=== PATIENT | female | born 1935 | race Two or more races ===

== ENCOUNTER 2016-07-31 10:24 | Inpatient (IN) | payer OTHER ==
[~2016-07-31] VITALS: Ht 157.5 cm; Wt 60.5 kg
[~2016-07-31 10:24] MED LIST: ASPI-231 PO; CLOP75TA28 PO; DIL120C PO; LISI10TA6 PO; SIMV-13 PO
[2016-07-31] MEDS ORDERED: SODIUM CHLORIDE 0.9% 1,000 ML IV ONE (12:40)
[2016-07-31 13:04] LABS: Basophils # (auto) 0 uL; Basophils % (auto) 0.5 % (0.0-2.0); Eosinophils # (auto) 0.1 uL; Eosinophils % (auto) 1.8 % (0.0-7.0); Hematocrit 41.4 % (36.0-46.0); Lymphocytes # (auto) 1.9 uL; Lymphocytes % (auto) 25.9 % (10.0-50.0); Mean Corpuscular Hemoglobin 29.5 pg (28.0-32.0); Mean Corpuscular Hgb Conc. 31.5 g/dL (32.0-36.0); Mean Corpuscular Volume 93.8 fL (80.0-100.0); Mean Platelet Volume 7.8 fL (7.4-10.4); Monocytes # (auto) 0.6 uL; Monocytes % (auto) 7.5 % (0.0-12.0); Neutrophils # (auto) 4.7 uL; Neutrophils % (auto) 64.3 % (37.0-80.0); Platelet Count (auto) 297 10^3/uL (140-450); Red Cell Distribution Width 13.1 % (11.6-16.0); White Blood Cell 7.4 10^3/uL (4.4-10.8)
[2016-07-31 13:15] LABS: INR 0.97 (0.9-1.15); Partial Thromboplastin Time 24.8 sec (22.64-33.71)
[2016-07-31 13:20] LABS: Albumin 3.7 g/dL (3.4-5.0); BUN/Creatinine Ratio 22.7; Calcium 8.8 mg/dL (8.5-10.1); Magnesium 2.3 mg/dL (1.6-2.6)
[2016-07-31 13:23] LABS: Bilirubin, Total 0.3 mg/dL (0.2-1.0); Total Protein 7.3 g/dL (6.4-8.2)
[2016-07-31] MEDS ORDERED: PROMETHAZINE HCL 25 MG/ML 1ML IV PRN (14:00)
[2016-07-31] MEDS ORDERED: PANTOPRAZOLE 40 MG TAB PO ONE (14:00)
[2016-07-31] MEDS ORDERED: MORPHINE SULF INJ 2 MG/ML SYRINGE 1ML IV PRN ×2 (14:00)
[2016-07-31] MEDS ORDERED: ACETAMINOPHEN 500 MG TAB PO PRN (14:00)
[2016-07-31] MEDS ORDERED: HYDROcodone-ACET 5/325MG TAB PO PRN (14:00)
[2016-07-31] MEDS ORDERED: LACTULOSE 20Gm/30ML SOLN PO PRN (14:00)
[2016-07-31] MEDS ORDERED: NITROGLYCERIN 0.4 MG SL TAB SL PRN (14:00)
[2016-07-31] MEDS ORDERED: LORazepam 0.5 MG TAB PO PRN (14:00)
[2016-07-31] MEDS ORDERED: ENOXAPARIN SOD 40 MG/0.4 ML SYRINGE SC ONE (14:00)
[2016-07-31 14:54] LABS: Temperature: 23.7 C (20.0-25.0)
[2016-07-31] MEDS: SODIUM CHLORIDE 0.9% 1,000 ML IV SCH ×2 (15:41→15:48)
[2016-07-31] MEDS ORDERED: CLOPIDOGREL BISULFATE 75 MG TAB PO ONE (18:45)
[2016-07-31] MEDS ORDERED: LISINOPRIL 10 MG TAB PO ONE (18:45)
[2016-07-31] MEDS ORDERED: DILTIAZEM HCL 120MG ER CAP PO ONE (18:45)
[2016-07-31 20:00] VITALS: BP 120/67
[2016-07-31 22:00] VITALS: BP 120/67
[2016-07-31] MEDS: TEMAZEPAM 15 MG CAP PO PRN (23:44)
[2016-07-31] MEDS: LISINOPRIL 10 MG TAB PO SCH (23:44)
[2016-08-01 05:00] VITALS: BP 108/66
[2016-08-01 07:07] LABS: Albumin 3.1 g/dL (3.4-5.0); BUN/Creatinine Ratio 18.6; Bilirubin, Total 0.5 mg/dL (0.2-1.0); Calcium 8.5 mg/dL (8.5-10.1); Potassium 3.8 mmol/L (3.5-5.1); Total Protein 6.3 g/dL (6.4-8.2)
[2016-08-01 09:00] VITALS: BP 119/68
[2016-08-01] MEDS: ENOXAPARIN SOD 40 MG/0.4 ML SYRINGE SC SCH (09:44)
[2016-08-01] MEDS: ASPirin 81 mg TAB PO SCH (09:49)
[2016-08-01] MEDS: CLOPIDOGREL BISULFATE 75 MG TAB PO SCH (09:49)
[2016-08-01] MEDS: PANTOPRAZOLE 40 MG TAB PO SCH (09:49)
[2016-08-01] MEDS: DILTIAZEM HCL 120MG ER CAP PO SCH (09:50)
[2016-08-01] MEDS ORDERED: ASPirin 81 mg TAB PO ONE (10:00)
[2016-08-01 10:12] LABS: Urine Bilirubin Negative (Negative); Urine Color Yellow (Yellow); Urine Glucose Normal (Normal); Urine Ketone Negative (Negative); Urine Nitrite Negative (Negative); Urine RBC 220 /hpf (0 - 4); Urine Squamous Epithelial Cell FEW /hpf (<5); Urine Urobilinogen Normal (Negative)
[2016-08-01 10:17] LABS: Urine Blood 2+ /uL (Negative)
[2016-08-01 13:00] VITALS: BP 100/68
[2016-08-01 14:34] LABS: Cholesterol 206 mg/dL (<200); HDL Cholesterol 53 mg/dL (40-59); LDL Cholesterol 138 mg/dL (<100); Triglycerides 145 mg/dL (<150)
[2016-08-01] MEDS ORDERED: IOHEXOL 350 MG/ML 100ML IJ ONE (15:05)
[2016-08-01 17:00] VITALS: BP 115/59
[2016-08-01 20:00] VITALS: BP 120/67
[2016-08-01 22:00] VITALS: BP 116/59
[2016-08-01] MEDS: LISINOPRIL 10 MG TAB PO SCH (22:37)
[2016-08-01] MEDS: TEMAZEPAM 15 MG CAP PO PRN (22:37)
[2016-08-02 05:00] VITALS: BP 120/68
[2016-08-02 08:00] VITALS: BP 113/61
[2016-08-02 09:00] VITALS: BP 113/61
[2016-08-02] MEDS: ENOXAPARIN SOD 40 MG/0.4 ML SYRINGE SC SCH (10:19)
[2016-08-02] MEDS: CLOPIDOGREL BISULFATE 75 MG TAB PO SCH (10:19)
[2016-08-02] MEDS: DILTIAZEM HCL 120MG ER CAP PO SCH (10:20)
[2016-08-02] MEDS: ASPirin 81 mg TAB PO SCH (10:21)
[2016-08-02] MEDS: PANTOPRAZOLE 40 MG TAB PO SCH (10:21)
[2016-08-02 13:00] VITALS: BP 103/67
[2016-08-02] MEDS: SODIUM CHLORIDE 0.9% 1,000 ML IV SCH (16:17)
[2016-08-02 17:00] VITALS: BP 129/74
[2016-08-02 22:00] VITALS: BP 110/57
[2016-08-02] MEDS: TEMAZEPAM 15 MG CAP PO PRN (22:09)
[2016-08-02] MEDS: LISINOPRIL 10 MG TAB PO SCH (22:09)
[2016-08-03] VITALS (7 sets, daily range): BP systolic 121–139; BP diastolic 57–76
[2016-08-03] MEDS: SODIUM CHLORIDE 0.9% 1,000 ML IV SCH ×2 (04:33→19:08)
[2016-08-03 05:06] LABS: Basophils # (auto) 0 uL; Basophils % (auto) 0.4 % (0.0-2.0); Eosinophils # (auto) 0.3 uL; Eosinophils % (auto) 5.4 % (0.0-7.0); Hematocrit 36.6 % (36.0-46.0); Hemoglobin 11.8 g/dL (12.2-16.2); Lymphocytes % (auto) 37.2 % (10.0-50.0); Mean Corpuscular Hgb Conc. 32.1 g/dL (32.0-36.0); Mean Corpuscular Volume 93.4 fL (80.0-100.0); Mean Platelet Volume 7.9 fL (7.4-10.4); Monocytes # (auto) 0.5 uL; Monocytes % (auto) 9.4 % (0.0-12.0); Neutrophils # (auto) 2.5 uL; Neutrophils % (auto) 47.6 % (37.0-80.0); Platelet Count (auto) 253 10^3/uL (140-450); Red Cell Distribution Width 13.4 % (11.6-16.0); White Blood Cell 5.3 10^3/uL (4.4-10.8)
[2016-08-03 05:35] LABS: Albumin 2.8 g/dL (3.4-5.0); Calcium 8.3 mg/dL (8.5-10.1); Magnesium 2.1 mg/dL (1.6-2.6); Potassium 3.9 mmol/L (3.5-5.1)
[2016-08-03 05:37] LABS: BUN/Creatinine Ratio 15.5
[2016-08-03 05:40] LABS: Bilirubin, Total 0.3 mg/dL (0.2-1.0); Total Protein 5.7 g/dL (6.4-8.2)
[2016-08-03] MEDS ORDERED: LORazepam 2MG/ML-1ML VIAL IV ONE (10:30)
[2016-08-03] MEDS: ENOXAPARIN SOD 40 MG/0.4 ML SYRINGE SC SCH (10:34)
[2016-08-03] MEDS: DILTIAZEM HCL 120MG ER CAP PO SCH (10:35)
[2016-08-03] MEDS: PANTOPRAZOLE 40 MG TAB PO SCH (10:36)
[2016-08-03] MEDS: CLOPIDOGREL BISULFATE 75 MG TAB PO SCH (10:36)
[2016-08-03] MEDS: ASPirin 81 mg TAB PO SCH (10:36)
[2016-08-03] MEDS: LISINOPRIL 10 MG TAB PO SCH (21:54)
[2016-08-03] MEDS: TEMAZEPAM 15 MG CAP PO PRN (21:57)
[2016-08-04] MEDS: SODIUM CHLORIDE 0.9% 1,000 ML IV SCH (05:58)
[2016-08-04 06:03] VITALS: BP 124/71
[2016-08-04 07:05] LABS: BUN/Creatinine Ratio 12.1; Calcium 8.3 mg/dL (8.5-10.1); Potassium 3.7 mmol/L (3.5-5.1)
[2016-08-04 09:00] VITALS: BP 118/68
[2016-08-04] MEDS ORDERED: FUROSEMIDE 40 MG/4 ML VIAL ONE (09:02)
[2016-08-04] MEDS: CLOPIDOGREL BISULFATE 75 MG TAB PO SCH (10:02)
[2016-08-04] MEDS: PANTOPRAZOLE 40 MG TAB PO SCH (10:02)
[2016-08-04] MEDS: ASPirin 81 mg TAB PO SCH (10:02)
[2016-08-04] MEDS: ENOXAPARIN SOD 40 MG/0.4 ML SYRINGE SC SCH (10:02)
[2016-08-04] MEDS: DILTIAZEM HCL 120MG ER CAP PO SCH (10:03)
[2016-08-04 12:54] VITALS: BP 115/63
[2016-08-04 15:59] VITALS: BP 118/68
[2016-08-04] MEDS ORDERED: ATORVASTATIN 20 MG TAB PO SCH (22:00)
== END 2016-08-04 17:33 | disposition home health service (06) | DRG 69 ==
LOC: ER 10:29 → TELE 10:30 → TELE-EAST 18:57
PROVIDERS: ADMIT Internal Medicine; ATTEND Internal Medicine
DX: G45.9 Transient cerebral ischemic attack, unspecified (principal); E44.1 Mild protein-calorie malnutrition; I13.0 Hypertensive heart and chronic kidney disease with heart failure and stage 1 through stage 4 chronic kidney disease, or unspecified chronic kidney disease; N13.2 Hydronephrosis with renal and ureteral calculous obstruction; I25.10 Atherosclerotic heart disease of native coronary artery without angina pectoris; E78.5 Hyperlipidemia, unspecified; I50.9 Heart failure, unspecified; K75.9 Inflammatory liver disease, unspecified; N13.9 Obstructive and reflux uropathy, unspecified; Z83.3 Family history of diabetes mellitus; I25.2 Old myocardial infarction; Z79.82 Long term (current) use of aspirin; Z80.6 Family history of leukemia; Z79.899 Other long term (current) drug therapy; Z90.49 Acquired absence of other specified parts of digestive tract; Z68.24 Body mass index [BMI] 24.0-24.9, adult
CPT/HCPCS: 36415; 70450; 70496; 70498; 70551; 71010; 74176; 76705; 78707; 80048; 80053; 80061; 81001; 82550; 82607; 82746; 83036; 83735; 84443; 84484; 85025; 85610; 85652; 85730; 86141; 87081; 93005; 93886; 94761; 96360; 96372

== ENCOUNTER 2017-06-29 08:24 | Emergency (ER) | payer OTHER ==
[~2017-06-29] VITALS: Ht 157.5 cm; Wt 60.8 kg
[2017-06-29] MEDS ORDERED: ALBUTEROL SULF 2.5 MG/0.5ML(0.5%) NEB SOLN NEB ONE (09:45)
[2017-06-29] MEDS ORDERED: IPRATROPIUM BROM 0.5 MG/2.5ML INH SOL NEB ONE (09:45)
[2017-06-29] MEDS ORDERED: methylPREDNISolone SOD SUCC 125 MG/2 ML VL IM ONE (09:45)
[2017-06-29] MEDS ORDERED: NITROGLYCERIN 0.4 MG SL TAB SL ONE (10:00)
[2017-06-29 10:13] LABS: Basophils # (auto) 0 uL; Basophils % (auto) 0.4 % (0.0-2.0); Eosinophils # (auto) 0 uL; Eosinophils % (auto) 0.5 % (0.0-7.0); Hematocrit 41.9 % (36.0-46.0); Hemoglobin 14.2 g/dL (12.2-16.2); Lymphocytes # (auto) 1.6 uL; Mean Corpuscular Hemoglobin 32.5 pg (28.0-32.0); Mean Corpuscular Hgb Conc. 33.8 g/dL (32.0-36.0); Monocytes # (auto) 0.4 uL; Monocytes % (auto) 4.8 % (0.0-12.0); Neutrophils # (auto) 6.7 uL; Neutrophils % (auto) 76.3 % (37.0-80.0); Nucleated Red Blood Cells % 0.1 %; Platelet Count (auto) 268 10^3/uL (140-450); Red Blood Cells 4.37 10^6/uL (4.0-5.20); White Blood Cell 8.8 10^3/uL (4.4-10.8)
[2017-06-29 10:38] LABS: Urine Bacteria NONE SEEN /hpf (None Seen); Urine Blood Negative /uL (Negative); Urine Mucus FEW (None Seen); Urine WBC 5 /hpf (0 - 5)
[2017-06-29 11:30] VITALS: BP 138/68
[2017-06-29 11:49] LABS: Albumin 3.6 g/dL (3.4-5.0); BUN/Creatinine Ratio 22.6; Bilirubin, Total 0.7 mg/dL (0.2-1.0); Calcium 8.2 mg/dL (8.5-10.1); Potassium 4.2 mmol/L (3.5-5.1); Total Protein 6.6 g/dL (6.4-8.2)
== END 2017-06-29 12:41 | disposition home or self-care (01) ==
LOC: ER 08:24 → EDBD 08:24 → ER 12:41
DX: J40 Bronchitis, not specified as acute or chronic (principal); I25.10 Atherosclerotic heart disease of native coronary artery without angina pectoris; E78.5 Hyperlipidemia, unspecified; I10 Essential (primary) hypertension; I25.2 Old myocardial infarction; Z86.73 Personal history of transient ischemic attack (TIA), and cerebral infarction without residual deficits
CPT/HCPCS: 36415; 71046; 80053; 81001; 83880; 84484; 85025; 94640; 96372; 99285; J2930; 93005

== ENCOUNTER 2017-09-25 19:54 | Emergency (ER) | payer OTHER ==
[~2017-09-25] VITALS: Ht 157.5 cm; Wt 60.8 kg
[2017-09-25 20:46] LABS: Urine Bacteria FEW /hpf (None Seen); Urine Blood 2+ /uL (Negative); Urine Specific Gravity 1.007 (1.001-1.035); Urine WBC 816 /hpf (0 - 5); Urine WBC Clumps PRESENT /hpf (None Seen)
[2017-09-25 21:11] LABS: Basophils # (auto) 0.1 uL; Basophils % (auto) 0.7 % (0.0-2.0); Eosinophils # (auto) 0.1 uL; Eosinophils % (auto) 0.5 % (0.0-7.0); Hematocrit 42.2 % (36.0-46.0); Lymphocytes # (auto) 1.4 uL; Lymphocytes % (auto) 12.5 % (10.0-50.0); Mean Corpuscular Hemoglobin 31.1 pg (28.0-32.0); Mean Corpuscular Hgb Conc. 33.1 g/dL (32.0-36.0); Mean Corpuscular Volume 93.9 fL (80.0-100.0); Monocytes # (auto) 1.3 uL; Monocytes % (auto) 11.2 % (0.0-12.0); Neutrophils # (auto) 8.5 uL; Neutrophils % (auto) 75.1 % (37.0-80.0); Platelet Count (auto) 270 10^3/uL (140-450); Red Cell Distribution Width 13.8 % (11.8-14.3); White Blood Cell 11.4 10^3/uL (4.4-10.8)
[2017-09-25 21:27] LABS: INR 0.9 (0.9-1.15); Partial Thromboplastin Time 25.3 sec (22.64-33.71); Prothrombin Time 9.8 sec (9.37-12.3)
[2017-09-25 21:38] LABS: Alanine Aminotransferase 29 U/L (13-56); Albumin 4.1 g/dL (3.4-5.0); Alkaline Phosphatase 67 U/L (45-117); Anion Gap 6 (5-15); Aspartate Aminotransferase 25 U/L (15-37); BUN/Creatinine Ratio 14.3; Bilirubin, Total 0.6 mg/dL (0.2-1.0); Blood Urea Nitrogen 11 mg/dL (7-18); Calcium 8.9 mg/dL (8.5-10.1); Carbon Dioxide 26 mmol/L (21-32); Chloride 100 mmol/L (98-107); GFR African American 92 mL/min; GFR Non-African American 76 mL/min; Glucose 115 mg/dL (74-106); Potassium 3.9 mmol/L (3.5-5.1); Sodium 132 mmol/L (136-145); Total Protein 7.9 g/dL (6.4-8.2)
[2017-09-25] MEDS ORDERED: cefTRIAXone 1GM/10ml IVPUSH 10 ML IV ONE (23:15)
[2017-09-25] MEDS ORDERED: SODIUM CHLORIDE 0.9% 1,000 ML IV ONE (23:30)
[2017-09-26] MEDS ORDERED: NALBUPHINE HCL 10 MG/1ml INJECTION IV ONE (00:15)
[2017-09-26] MEDS ORDERED: ONDANSETRON HCL 4 MG/2 ML VIAL IV ONE (00:15)
[2017-09-26 02:07] VITALS: BP 91/60
== END 2017-09-26 02:13 | disposition home or self-care (01) ==
LOC: ER 19:54
DX: N39.0 Urinary tract infection, site not specified (principal); K59.00 Constipation, unspecified; I25.10 Atherosclerotic heart disease of native coronary artery without angina pectoris; E78.5 Hyperlipidemia, unspecified; I10 Essential (primary) hypertension; I25.2 Old myocardial infarction; Z86.73 Personal history of transient ischemic attack (TIA), and cerebral infarction without residual deficits; Z79.899 Other long term (current) drug therapy; Z87.440 Personal history of urinary (tract) infections; Z79.82 Long term (current) use of aspirin; Z90.49 Acquired absence of other specified parts of digestive tract; Z87.442 Personal history of urinary calculi
CPT/HCPCS: 36415; 74176; 80053; 81001; 83880; 84484; 85025; 85610; 85730; 93005; 96361; 96374; 96375; 99285; J2300; J2405; J7030

== ENCOUNTER 2018-01-23 13:22 | Observation (INO) | payer MEDICARE, OTHER ==
[~2018-01-23] VITALS: Ht 157.5 cm; Wt 59.9 kg
[2018-01-23] MEDS ORDERED: SODIUM CHLORIDE 0.9% 1,000 ML IV ONE (15:14)
[2018-01-23] MEDS ORDERED: PHENAZOPYRIDINE HCL 100 MG TAB PO ONE (15:30)
[2018-01-23 16:10] VITALS: BP 154/66
[2018-01-23] MEDS ORDERED: SODIUM CHLORIDE 0.9% 1,000 ML IVB ONE (16:36)
[2018-01-23 16:37] LABS: Basophils # (auto) 0.1 uL; Basophils % (auto) 0.6 % (0.0-2.0); Eosinophils # (auto) 0.1 uL; Eosinophils % (auto) 0.7 % (0.0-7.0); Hemoglobin 13.8 g/dL (12.2-16.2); Lymphocytes # (auto) 0.8 uL; Lymphocytes % (auto) 4.9 % (10.0-50.0); Mean Corpuscular Hemoglobin 31.7 pg (28.0-32.0); Mean Corpuscular Hgb Conc. 33.8 g/dL (32.0-36.0); Mean Corpuscular Volume 93.8 fL (80.0-100.0); Monocytes # (auto) 0.7 uL; Monocytes % (auto) 4.4 % (0.0-12.0); Neutrophils % (auto) 89.4 % (37.0-80.0); Platelet Count (auto) 227 10^3/uL (140-450); Red Blood Cells 4.37 10^6/uL (4.0-5.20); Red Cell Distribution Width 13.1 % (11.8-14.3); White Blood Cell 16.8 10^3/uL (4.4-10.8)
[2018-01-23] MEDS ORDERED: ONDANSETRON HCL 4 MG/2 ML VIAL IV ONE (16:45)
[2018-01-23] MEDS ORDERED: MORPHINE SULF INJ 2 MG/ML SYRINGE 1ML IV ONE (16:45)
[2018-01-23 16:49] LABS: Urine Bacteria NONE SEEN /hpf (None Seen); Urine Blood Negative /uL (Negative); Urine Mucus FEW (None Seen); Urine WBC 19 /hpf (0 - 5)
[2018-01-23 16:55] LABS: Albumin 3.2 g/dL (3.4-5.0); BUN/Creatinine Ratio 14.9; Calcium 8.1 mg/dL (8.5-10.1); Potassium 3.3 mmol/L (3.5-5.1)
[2018-01-23 16:57] LABS: Bilirubin, Total 1.1 mg/dL (0.2-1.0); INR 0.97 (0.9-1.15); Partial Thromboplastin Time 26.6 sec (23.78-33.04); Prothrombin Time 10.4 sec (9.27-12.13); Total Protein 6.5 g/dL (6.4-8.2)
[2018-01-23] MEDS ORDERED: cefTRIAXone 1GM/10ml IVPUSH 10 ML IV ONE (17:00)
== END 2018-01-23 18:03 | disposition home or self-care (01) | DRG 690 ==
LOC: MERGE 13:22 → ER 13:22 → OVERFLOW 13:23 → ER 18:03
PROVIDERS: ADMIT Family Medicine; ATTEND Family Medicine
DX: N12 Tubulo-interstitial nephritis, not specified as acute or chronic (principal); I10 Essential (primary) hypertension; I25.2 Old myocardial infarction; Z88.1 Allergy status to other antibiotic agents; Z90.49 Acquired absence of other specified parts of digestive tract
CPT/HCPCS: 36415; 71045; 74176; 80053; 81001; 83735; 84484; 85025; 85610; 85730; 87040; 87086; 93005; 96361; 96374; 96375; 99285; G0378; J0696; J2270; J2405; J7030

== ENCOUNTER 2018-04-05 15:37 | Inpatient (IN) | payer OTHER ==
[~2018-04-05] VITALS: Ht 157.5 cm; Wt 60.9 kg
[2018-04-05] MEDS ORDERED: SODIUM CHLORIDE 0.9% 1,000 ML IV ONE (15:52)
[2018-04-05 17:26] LABS: Urine Bacteria FEW /hpf (None Seen); Urine Blood 2+ /uL (Negative); Urine Mucus FEW (None Seen); Urine Specific Gravity 1.015 (1.001-1.035); Urine WBC 2327 /hpf (0 - 5); Urine WBC Clumps PRESENT /hpf (None Seen)
[2018-04-05] MEDS ORDERED: cefTRIAXone 1GM/50ML D5W 50 ML IV ONE (17:30)
[2018-04-05] MEDS ORDERED: TEMAZEPAM 15 MG CAP PO PRN (18:15)
[2018-04-05] MEDS ORDERED: ACETAMINOPHEN 325 MG TAB PO PRN (18:15)
[2018-04-05] MEDS ORDERED: HYDROcodone-ACET 5/325MG TAB PO PRN (18:15)
[2018-04-05] MEDS ORDERED: DOCUSATE SOD 100 MG CAP PO PRN (18:15)
[2018-04-05] MEDS ORDERED: MORPHINE SULFATE 4 MG/ML SYR/VIAL IV PRN (18:15)
[2018-04-05] MEDS ORDERED: ONDANSETRON HCL 4 MG/2 ML VIAL IV PRN (18:15)
[2018-04-05 18:44] LABS: Basophils # (auto) 0 uL; Basophils % (auto) 0.2 % (0.0-2.0); Eosinophils # (auto) 0 uL; Hematocrit 41.3 % (36.0-46.0); Lymphocytes # (auto) 1.3 uL; Lymphocytes % (auto) 7.7 % (10.0-50.0); Mean Corpuscular Hgb Conc. 33.8 g/dL (32.0-36.0); Mean Corpuscular Volume 94.5 fL (80.0-100.0); Monocytes # (auto) 0.7 uL; Monocytes % (auto) 4.2 % (0.0-12.0); Neutrophils # (auto) 14.3 uL; Neutrophils % (auto) 87.9 % (37.0-80.0); Platelet Count (auto) 219 10^3/uL (140-450); Red Blood Cells 4.37 10^6/uL (4.0-5.20); Red Cell Distribution Width 13.4 % (11.8-14.3); White Blood Cell 16.2 10^3/uL (4.4-10.8)
[2018-04-05 18:52] LABS: Partial Thromboplastin Time 27.9 sec (23.78-33.04); Prothrombin Time 10.7 sec (9.27-12.13)
[2018-04-05 18:55] LABS: Albumin 3.5 g/dL (3.4-5.0); Anion Gap 10 (5-15); Blood Urea Nitrogen 10 mg/dL (7-18); Calcium 8.4 mg/dL (8.5-10.1); Carbon Dioxide 23 mmol/L (21-32); Chloride 100 mmol/L (98-107); Glucose 126 mg/dL (74-106); Magnesium 2.2 mg/dL (1.6-2.6); Potassium 3.3 mmol/L (3.5-5.1); Sodium 133 mmol/L (136-145)
[2018-04-05 18:59] LABS: BUN/Creatinine Ratio 14.1; GFR African American 101 mL/min; GFR Non-African American 84 mL/min
[2018-04-05 19:04] LABS: Alanine Aminotransferase 44 U/L (13-56); Alkaline Phosphatase 66 U/L (45-117); Aspartate Aminotransferase 47 U/L (15-37); Bilirubin, Total 1.5 mg/dL (0.2-1.0); Total Protein 7.4 g/dL (6.4-8.2)
[2018-04-05] MEDS ORDERED: POTASSIUM EFFERVESENT TAB 25 MEQ PO ONE (20:30)
[2018-04-05 22:00] VITALS: BP 157/94
[2018-04-05] MEDS: ATORVASTATIN 20 MG TAB PO SCH (22:00)
[2018-04-05] MEDS: FAMOTIDINE 20 MG TAB PO SCH (22:00)
[2018-04-05] MEDS: SODIUM CHLOR 0.9% PF (SALINE LOCK) 10ML VIAL/SYR IV SCH (22:06)
[2018-04-05 22:37] VITALS: BP 123/63
[2018-04-05] MEDS ORDERED: ASPI81CH43 PO (23:24)
[2018-04-05] MEDS ORDERED: VERA120T89 PO (23:24)
[2018-04-05] MEDS ORDERED: CLOP75TA41 PO (23:24)
[2018-04-05] MEDS ORDERED: LISI-275 PO (23:24)
[2018-04-05] MEDS ORDERED: ATOR20TA50 PO (23:24)
[2018-04-05] MEDS ORDERED: SOTA80TA PO (23:24)
[2018-04-05 23:28] VITALS: BP 123/63
[2018-04-06 05:00] VITALS: BP 107/57
[2018-04-06 06:20] LABS: Basophils # (auto) 0 uL; Basophils % (auto) 0.3 % (0.0-2.0); Eosinophils # (auto) 0.3 uL; Hematocrit 35.4 % (36.0-46.0); Hemoglobin 12.2 g/dL (12.2-16.2); Lymphocytes # (auto) 1.5 uL; Lymphocytes % (auto) 13.2 % (10.0-50.0); Mean Corpuscular Hemoglobin 32.3 pg (28.0-32.0); Mean Corpuscular Hgb Conc. 34.4 g/dL (32.0-36.0); Mean Corpuscular Volume 93.9 fL (80.0-100.0); Monocytes # (auto) 0.8 uL; Monocytes % (auto) 6.9 % (0.0-12.0); Neutrophils # (auto) 8.4 uL; Neutrophils % (auto) 76.6 % (37.0-80.0); Platelet Count (auto) 199 10^3/uL (140-450); Red Blood Cells 3.77 10^6/uL (4.0-5.20); Red Cell Distribution Width 13.7 % (11.8-14.3)
[2018-04-06] MEDS: SODIUM CHLOR 0.9% PF (SALINE LOCK) 10ML VIAL/SYR IV SCH ×3 (06:21→21:34)
[2018-04-06 06:39] LABS: Albumin 2.8 g/dL (3.4-5.0); Anion Gap 11 (5-15); Blood Urea Nitrogen 9 mg/dL (7-18); Calcium 7.8 mg/dL (8.5-10.1); Carbon Dioxide 23 mmol/L (21-32); Chloride 105 mmol/L (98-107); Glucose 89 mg/dL (74-106); Potassium 3.9 mmol/L (3.5-5.1); Sodium 139 mmol/L (136-145)
[2018-04-06 06:41] LABS: Alanine Aminotransferase 31 U/L (13-56); Aspartate Aminotransferase 25 U/L (15-37); BUN/Creatinine Ratio 13.6; GFR African American 110 mL/min; GFR Non-African American 91 mL/min
[2018-04-06 06:43] LABS: Alkaline Phosphatase 52 U/L (45-117); Bilirubin, Total 0.8 mg/dL (0.2-1.0)
[2018-04-06 08:17] VITALS: BP 114/60
[2018-04-06] MEDS: cefTRIAXone 1GM/50ML D5W 50 ML IV SCH (09:58)
[2018-04-06] MEDS ORDERED: VERAPAMIL HCL 120 mg ER tab PO SCH ×2 (10:00→19:00)
[2018-04-06] MEDS: FAMOTIDINE 20 MG TAB PO SCH ×2 (10:00→21:34)
[2018-04-06] MEDS ORDERED: LOSARTAN POTASSIUM 25 MG TAB PO SCH ×2 (10:00→19:00)
[2018-04-06] MEDS: SOTALOL HCL 80 MG TAB PO SCH (10:01)
[2018-04-06] MEDS: MULTIPLE VITAMIN TAB PO SCH (10:09)
[2018-04-06 12:16] VITALS: BP 119/65
[2018-04-06 16:58] VITALS: BP 120/60
[2018-04-06] MEDS: ATORVASTATIN 20 MG TAB PO SCH (21:34)
[2018-04-06 22:00] VITALS: BP 133/65
[2018-04-07 05:00] VITALS: BP 120/62
[2018-04-07] MEDS: SODIUM CHLOR 0.9% PF (SALINE LOCK) 10ML VIAL/SYR IV SCH ×2 (06:01→13:16)
[2018-04-07 06:34] LABS: Basophils # (auto) 0 uL; Basophils % (auto) 0.5 % (0.0-2.0); Eosinophils # (auto) 0.4 uL; Hematocrit 36.6 % (36.0-46.0); Hemoglobin 12.6 g/dL (12.2-16.2); Lymphocytes # (auto) 1.3 uL; Lymphocytes % (auto) 17.9 % (10.0-50.0); Mean Corpuscular Hemoglobin 32.5 pg (28.0-32.0); Mean Corpuscular Hgb Conc. 34.4 g/dL (32.0-36.0); Mean Corpuscular Volume 94.4 fL (80.0-100.0); Monocytes # (auto) 0.6 uL; Monocytes % (auto) 8.8 % (0.0-12.0); Neutrophils # (auto) 4.9 uL; Neutrophils % (auto) 66.8 % (37.0-80.0); Platelet Count (auto) 211 10^3/uL (140-450); Red Blood Cells 3.88 10^6/uL (4.0-5.20); Red Cell Distribution Width 13.5 % (11.8-14.3); White Blood Cell 7.3 10^3/uL (4.4-10.8)
[2018-04-07 06:54] LABS: BUN/Creatinine Ratio 19.6; Calcium 8.3 mg/dL (8.5-10.1); Magnesium 2.2 mg/dL (1.6-2.6); Potassium 3.8 mmol/L (3.5-5.1)
[2018-04-07 08:00] VITALS: BP 135/62
[2018-04-07 08:17] VITALS: BP 135/62
[2018-04-07] MEDS: MULTIPLE VITAMIN TAB PO SCH (09:49)
[2018-04-07] MEDS: cefTRIAXone 1GM/50ML D5W 50 ML IV SCH (09:49)
[2018-04-07] MEDS: SOTALOL HCL 80 MG TAB PO SCH (09:49)
[2018-04-07] MEDS: FAMOTIDINE 20 MG TAB PO SCH (09:49)
[2018-04-07] MEDS ORDERED: AMOXICILLIN/CLAVULAN 500 MG TAB PO ONE (10:45)
[2018-04-07 12:06] VITALS: BP 135/62
[2018-04-07 12:25] VITALS: BP 141/68
== END 2018-04-07 15:50 | disposition home or self-care (01) | DRG 872 ==
LOC: ER 15:44 → MERGE 15:45 → OVERFLOW 15:45 → WEST WING 22:24
PROVIDERS: ADMIT Internal Medicine; ATTEND Internal Medicine
DX: A41.9 Sepsis, unspecified organism (principal); N12 Tubulo-interstitial nephritis, not specified as acute or chronic; E87.1 Hypo-osmolality and hyponatremia; J20.9 Acute bronchitis, unspecified; R06.03 Acute respiratory distress; I25.10 Atherosclerotic heart disease of native coronary artery without angina pectoris; E87.6 Hypokalemia; E83.51 Hypocalcemia; I12.9 Hypertensive chronic kidney disease with stage 1 through stage 4 chronic kidney disease, or unspecified chronic kidney disease; E78.5 Hyperlipidemia, unspecified; R07.89 Other chest pain; N18.2 Chronic kidney disease, stage 2 (mild); Z86.73 Personal history of transient ischemic attack (TIA), and cerebral infarction without residual deficits; Z90.710 Acquired absence of both cervix and uterus; Z90.49 Acquired absence of other specified parts of digestive tract; Z88.1 Allergy status to other antibiotic agents; Z90.410 Acquired total absence of pancreas
CPT/HCPCS: 36415; 71045; 80048; 80053; 81001; 83735; 83880; 84484; 85025; 85379; 85610; 85730; 87040; 87086; 96361; 96374; G0378; J0696

== ENCOUNTER 2020-07-04 14:38 | Emergency (ER) | payer OTHER ==
[~2020-07-04] VITALS: Ht 157.5 cm; Wt 60.8 kg
[~2020-07-04 14:38] MED LIST changes: +ATOR20TA50 PO; -CLOP75TA28 PO; +CLOP75TA70 PO; -DIL120C PO; +LISI-648 PO; -LISI10TA6 PO; +LOSA25TA38 PO; -SIMV-13 PO; +SOTA80TA20 PO; +VERA120T3 PO
[2020-07-04 14:41] VITALS: BP 164/86
[2020-07-04 15:18] LABS: Eosinophils # (auto) 0.1 10 ^3/uL (0-0.8); Eosinophils % (auto) 0.6 % (0.0-7.0); Monocytes # (auto) 1.2 10 ^3/uL (0-1.3); White Blood Cell 8.6 10^3/uL (4.4-10.8)
[2020-07-04 15:20] LABS: Basophils # (auto) 0 10 ^3/uL (0-0.2); Basophils % (auto) 0.5 % (0.0-2.0); Hematocrit 39.9 % (36.0-46.0); Hemoglobin 13.7 g/dL (12.2-16.2); Lymphocytes # (auto) 1.1 10 ^3/uL (0.4-5.4); Mean Corpuscular Hemoglobin 33.1 pg (28.0-32.0); Mean Corpuscular Hgb Conc. 34.4 g/dL (32.0-36.0); Mean Corpuscular Volume 96.1 fL (80.0-100.0); Monocytes % (auto) 13.6 % (0.0-12.0); Neutrophils # (auto) 6.2 10 ^3/uL (1.6-8.6); Neutrophils % (auto) 72.3 % (37.0-80.0); Nucleated Red Blood Cells % 0.1 %; Platelet Count (auto) 252 10^3/uL (140-450); Red Blood Cells 4.15 10^6/uL (4.0-5.20); Red Cell Distribution Width 13.9 % (11.8-14.3)
[2020-07-04 15:39] LABS: Albumin 3.6 g/dL (3.4-5.0); Anion Gap 6 (5-15); Blood Urea Nitrogen 15 mg/dL (7-18); Calcium 8.6 mg/dL (8.5-10.1); Carbon Dioxide 25 mmol/L (21-32); Chloride 101 mmol/L (98-107); Glucose 107 mg/dL (74-106); Potassium 3.9 mmol/L (3.5-5.1); Sodium 132 mmol/L (136-145)
[2020-07-04 15:45] LABS: Alanine Aminotransferase 30 U/L (13-56); Alkaline Phosphatase 72 U/L (45-117); Aspartate Aminotransferase 28 U/L (15-37); BUN/Creatinine Ratio 16.3; Bilirubin, Total 0.6 mg/dL (0.2-1.0); GFR African American 74 mL/min; GFR Non-African American 62 mL/min; Total Protein 7.6 g/dL (6.4-8.2)
== END 2020-07-04 16:41 | disposition home or self-care (01) ==
LOC: ER 14:38
DX: R20.0 Anesthesia of skin (principal); R53.1 Weakness; I12.9 Hypertensive chronic kidney disease with stage 1 through stage 4 chronic kidney disease, or unspecified chronic kidney disease; N18.9 Chronic kidney disease, unspecified; E78.5 Hyperlipidemia, unspecified; Z90.49 Acquired absence of other specified parts of digestive tract; Z90.710 Acquired absence of both cervix and uterus; Z86.73 Personal history of transient ischemic attack (TIA), and cerebral infarction without residual deficits
CPT/HCPCS: 36415; 70450; 80053; 84484; 85025; 93005

== ENCOUNTER 2021-02-24 09:40 | Emergency (ER) | payer OTHER ==
[~2021-02-24] VITALS: Ht 154.9 cm; Wt 68.0 kg
[~2021-02-24 09:40] MED LIST changes: -LISI-648 PO; +LISI-716 PO
[2021-02-24] MEDS ORDERED: MORPHINE SULFATE 4 MG/ML SYR/VIAL IV ONE (12:45)
[2021-02-24] MEDS ORDERED: ONDANSETRON HCL 4 MG/2 ML VIAL IV ONE (12:45)
[2021-02-24] MEDS ORDERED: SENN-62 PO (13:07)
[2021-02-24] MEDS ORDERED: CEL100T PO (13:07)
[2021-02-24] MEDS ORDERED: PERCOT PO (13:07)
[2021-02-24 13:24] LABS: Basophils # (auto) 0.1 10 ^3/uL (0-0.2); Basophils % (auto) 0.6 % (0.0-2.0); Eosinophils # (auto) 0 10 ^3/uL (0-0.8); Eosinophils % (auto) 0.1 % (0.0-7.0); Hematocrit 40.3 % (36.0-46.0); Hemoglobin 13.9 g/dL (12.2-16.2); Lymphocytes # (auto) 1.3 10 ^3/uL (0.4-5.4); Mean Corpuscular Hemoglobin 32.4 pg (28.0-32.0); Mean Corpuscular Hgb Conc. 34.5 g/dL (32.0-36.0); Monocytes # (auto) 0.6 10 ^3/uL (0-1.3); Monocytes % (auto) 6.8 % (0.0-12.0); Neutrophils # (auto) 7.1 10 ^3/uL (1.6-8.6); Neutrophils % (auto) 78.5 % (37.0-80.0); Red Blood Cells 4.29 10^6/uL (4.0-5.20); Red Cell Distribution Width 12.6 % (11.8-14.3); White Blood Cell 9.1 10^3/uL (4.4-10.8)
[2021-02-24 17:00] VITALS: BP 152/86
== END 2021-02-24 17:32 | disposition home or self-care (01) ==
LOC: EDBD 09:40 → ER 09:40
DX: S42.292A Other displaced fracture of upper end of left humerus, initial encounter for closed fracture (principal); S09.8XXA Other specified injuries of head, initial encounter; I10 Essential (primary) hypertension; I48.91 Unspecified atrial fibrillation; E78.5 Hyperlipidemia, unspecified; R51.9 Headache, unspecified; Z88.1 Allergy status to other antibiotic agents; Z79.82 Long term (current) use of aspirin; Z79.899 Other long term (current) drug therapy; Z86.73 Personal history of transient ischemic attack (TIA), and cerebral infarction without residual deficits; Z90.89 Acquired absence of other organs; Z90.49 Acquired absence of other specified parts of digestive tract; Z90.710 Acquired absence of both cervix and uterus; W18.39XA Other fall on same level, initial encounter; Y93.89 Activity, other specified; Y92.89 Other specified places as the place of occurrence of the external cause; Y99.8 Other external cause status
CPT/HCPCS: 36415; 70450; 71250; 72125; 72192; 73030; 73100; 85025; 93005; 96374; 96375; 99285; J2270; J2405

== ENCOUNTER 2023-10-12 11:23 | Inpatient (IN) | payer OTHER ==
[~2023-10-12] VITALS: Ht 157.5 cm; Wt 74.2 kg
[~2023-10-12 11:23] MED LIST changes: -ASPI-231 PO; +ASPI1TAB20 PO; +CEL100T PO; -LISI-716 PO; +LISI10TA34 PO; +LOSA-533 PO; -LOSA25TA38 PO; +PERCOT PO; +SENN-62 PO; -VERA120T3 PO; +VERA120T92 PO
[2023-10-12] MEDS: cloNIDine HCL 0.1 MG TAB PO ONE (11:35)
[2023-10-12 12:10] LABS: Basophils # (auto) 0 10 ^3/uL (0-0.2); Basophils % (auto) 0.5 % (0.0-2.0); Eosinophils # (auto) 0.1 10 ^3/uL (0-0.8); Eosinophils % (auto) 1.9 % (0.0-7.0); Hematocrit 43.9 % (36.0-46.0); Hemoglobin 14.4 g/dL (12.2-16.2); Lymphocytes # (auto) 2.4 10 ^3/uL (0.4-5.4); Lymphocytes % (auto) 32.5 % (10.0-50.0); Mean Corpuscular Hemoglobin 31.4 pg (28.0-32.0); Mean Corpuscular Hgb Conc. 32.7 g/dL (32.0-36.0); Mean Corpuscular Volume 96.1 fL (80.0-100.0); Monocytes # (auto) 0.8 10 ^3/uL (0-1.3); Monocytes % (auto) 10.4 % (0.0-12.0); Neutrophils % (auto) 54.7 % (37.0-80.0); Nucleated Red Blood Cells % 0.1 %; Red Blood Cells 4.57 10^6/uL (4.0-5.20); Red Cell Distribution Width 13.7 % (11.8-14.3); White Blood Cell 7.2 10^3/uL (4.4-10.8)
[2023-10-12 12:12] LABS: Chloride 100 mmol/L (98-107); Potassium 3.6 mmol/L (3.5-5.1); Sodium 132 mmol/L (136-145)
[2023-10-12 12:13] LABS: Anion Gap 9 (5-15); Carbon Dioxide 23 mmol/L (20-30)
[2023-10-12 12:14] LABS: Calcium 9.7 mg/dL (8.5-10.1)
[2023-10-12 12:18] LABS: Glucose 99 mg/dL (74-106)
[2023-10-12 12:19] LABS: BUN/Creatinine Ratio 8.7 (10.0-20.0); Blood Urea Nitrogen 6 mg/dL (9-23)
[2023-10-12 13:49] LABS: Urine Bacteria FEW /hpf (None Seen); Urine Blood Negative /uL (Negative); Urine Clarity Turbid (Clear); Urine Color Light-Yellow (Yellow); Urine Protein, UAD Negative (Negative); Urine Specific Gravity 1.012 (1.001-1.035); Urine Urobilinogen Normal (Negative); Urine WBC 3 /hpf (0 - 5); Urine pH 6.5 (5.0-9.0)
[2023-10-12] MEDS: SODIUM CHLORIDE 0.9% 1,000 ML IV SCH (14:30)
[2023-10-12] MEDS ORDERED: MORPHINE SULFATE INJ 2 MG/ml SYRG IV PRN ×2 (14:30)
[2023-10-12] MEDS: LOSARTAN POTASSIUM 25 MG TAB PO ONE (14:30)
[2023-10-12] MEDS ORDERED: ONDANSETRON HCL 4 MG/2 ML VIAL IV PRN (14:30)
[2023-10-12] MEDS ORDERED: NITROGLYCERIN 0.4 MG SL TAB SL PRN (14:30)
[2023-10-12] MEDS: IOHEXOL 350 MG/ML 100ML IJ ONE (14:35)
[2023-10-12] MEDS: CLOPIDOGREL BISULFATE 75 MG TAB PO ONE (15:38)
[2023-10-12] MEDS: NIFEdipine ER 30 MG TAB PO SCH (18:20)
[2023-10-12] MEDS: ATORVASTATIN 20 MG TAB PO SCH (22:00)
[2023-10-12 23:52] VITALS: BP 196/92; PULSE 69; RESP 18; O2SAT 98
[2023-10-13] VITALS (7 sets, daily range): BP systolic 119–196; BP diastolic 62–72; PULSE 57–71; RESP 18–20; TEMP 97.2–97.9; O2SAT 93–98
[2023-10-13] MEDS: cloNIDine HCL 0.1 MG TAB PO PRN (00:16)
[2023-10-13] MEDS: ASPirin-EC 81 mg tab PO SCH (10:33)
[2023-10-13] MEDS: CLOPIDOGREL BISULFATE 75 MG TAB PO SCH (10:34)
[2023-10-13] MEDS: LOSARTAN POTASSIUM 50 MG TAB PO SCH (10:35)
[2023-10-14] VITALS (8 sets, daily range): BP systolic 129–154; BP diastolic 54–89; PULSE 65–81; RESP 15–20; TEMP 97.2–98.2; O2SAT 95–97
[2023-10-14] MEDS: ACETAMINOPHEN 325 MG TAB PO PRN (04:26)
[2023-10-14] MEDS ORDERED: LOSA-533 PO (16:53)
[2023-10-14] MEDS ORDERED: VERA120T92 PO (16:53)
== END 2023-10-14 19:46 | disposition home health service (06) | DRG 305 ==
LOC: ER 11:23 → TELE 14:22 → TELE-EAST 14:22
PROVIDERS: ADMIT Hospitalist; ATTEND Hospitalist
DX: I16.0 Hypertensive urgency (principal); G45.9 Transient cerebral ischemic attack, unspecified; I48.91 Unspecified atrial fibrillation; E78.5 Hyperlipidemia, unspecified; Z88.1 Allergy status to other antibiotic agents; Z90.710 Acquired absence of both cervix and uterus; Z90.49 Acquired absence of other specified parts of digestive tract; Z86.73 Personal history of transient ischemic attack (TIA), and cerebral infarction without residual deficits; Z83.3 Family history of diabetes mellitus; Z80.9 Family history of malignant neoplasm, unspecified
CPT/HCPCS: 36415; 70450; 70496; 70551; 80048; 81001; 85025; 93005; 93306; 97110; 97116; 97163; 99291; G0378